=== PATIENT | male | born 1995 | race Caucasian/White ===

== ENCOUNTER 2018-02-01 11:23 | Emergency (ER) | payer OTHER ==
[2018-02-01 11:39] VITALS: BP 173/102; PULSE 89; RESP 18; TEMP 98.3
--- NOTE | 2018-02-01 11:54 | ED ---
Lower Extremity Injury HPI - General Chief Complaint: Extremity Injury, Lower Stated Complaint: Knee Injury Time Seen by Provider: 02/01/18 11:43 Source: patient, RN notes reviewed Mode of arrival: ambulatory Limitations: no limitations - History of Present Illness Initial Comments: This is a pleasant 22-year-old male who presents emergency department complaining of left knee pain. Patient states he was cutting wood yesterday when he twisted his left knee. Patient is complaining of pain to the anterior aspect of the knee. Patient did go to work but was unable to tolerate the knee pain while standing. Patient was sent to the ER for evaluation by his employer. This is a [id number] injury. Patient denies any ankle or hip pain. No other injuries. Pain is exacerbated by movement. Pain is sharp in nature. Patient has no preceding knee problems. MD Complaint: knee injury Onset/Timin -: days(s) Injury: Knee: Left Type of Injury: unknown Place: street/outdoors Severity: moderate Improves With: rest Worsens With: weight bearing, movement Treatments Prior to Arrival: cold therapy - Related Data Previous Rx's Medication Instructions Recorded Naproxen [Naprosyn] 500 mg PO Q12HR PRN #24 tab 02/01/18 Allergies Allergy/AdvReac Type Severity Reaction Status Date / Time No Known Allergies Allergy Verified 02/01/18 11:39 Review of Systems ROS Statement: Those systems with pertinent positive or pertinent negative responses have been documented in the HPI. ROS Other: All systems not noted in ROS Statement are negative. Past Medical History Past Medical History: No Reported History History of Any Multi-Drug Resistant Organisms: None Reported Past Surgical History: No Surgical Hx Reported Past Anesthesia/Blood Transfusion Reactions: No Reported Reaction Past Psychological History: ADD/ADHD Smoking Status: Current every day smoker Past Alcohol Use History: Rare Past Drug Use History: None Reported General Exam - General Exam Comments Initial Comments: Well-developed, well-nourished 22-year-old male in no distress Limitations: no limitations General appearance: alert, in no apparent distress Head exam: Present: atraumatic, normocephalic, normal inspection Eye exam: Present: normal appearance, EOMI ENT exam: Present: normal exam Neck exam: Present: normal inspection, full ROM Respiratory exam: Present: normal lung sounds bilaterally. Absent: respiratory distress, wheezes, rales, rhonchi, stridor Cardiovascular Exam: Present: regular rate, normal rhythm, normal heart sounds. Absent: systolic murmur, diastolic murmur, rubs, gallop, clicks Left Hip exam: Present: normal inspection, full ROM. Absent: tenderness, swelling, abrasion, laceration, ecchymosis, deformity, crepitus, dislocation, erythema, external rotation, internal rotation, shortening Upper Leg exam: Present: normal inspection. Absent: tenderness Knee exam: Present: tenderness, swelling, full knee extension. Absent: normal inspection, full ROM, abrasion, laceration, ecchymosis, deformity, crepitus, dislocation, erythema, effusion, pain w/ pronation/supination, posterior draw sign, pain/laxity with valgus, pain/laxity with varus Lower Leg exam: Present: normal inspection. Absent: tenderness Ankle exam: Present: normal inspection, full ROM. Absent: tenderness, swelling Neurovascular tendon exam: Present: no vascular compromise. Absent: pulse deficit, abnormal cap refill, sensory deficit, pallor Gait: antalgic Back exam: Present: normal inspection Neurological exam: Present: alert, oriented X3, CN II-XII intact Psychiatric exam: Present: normal affect, normal mood Skin exam: Present: warm, dry, intact, normal color. Absent: rash Course Vital Signs 02/01/18 11:36 Temperature 98.3 F Pulse Rate 89 Respiratory 18 Rate Blood Pressure 173/102 O2 Sat by Pulse 99 Oximetry Medical Decision Making - Medical Decision Making Patient has isolated orthopedic injury involving the left knee. Patient has no other injuries. Patient will be given work restrictions and be followed up with orthopedics. Return and follow-up parameters discussed. There is evidence of minimal joint effusion on x-ray as read by radiology. No acute fracture. Minimal patellar tracking instability via radiology. No other acute findings. Patient be placed in a knee immobilizer and told to follow-up with orthopedics. Work restrictions will be given. - Differential Diagnosis Knee effusion versus internal knee derangement versus sprain Disposition Clinical Impression: Internal derangement of left knee Disposition: HOME SELF-CARE Condition: Good Instructions: Knee Sprain (ED) Additional Instructions: Neurologic, Naprosyn as directed with food. Ice 20 minutes on and off for 4 days. Follow-up with orthopedics. Prescriptions: Naproxen [Naprosyn] 500 mg PO Q12HR PRN #24 tab PRN Reason: Pain Referrals: Epifanio Burnham DO [Doctor of Osteopathic Medicine] - 02/04/18 Time of Disposition: 12:28
--- NOTE | 2018-02-01 12:18 | XR ---
EXAMINATION TYPE: XR knee complete LT DATE OF EXAM: 02/01/2018 COMPARISON: NONE HISTORY: None TECHNIQUE: 22-year-old male with left knee pain for one day FINDINGS: There is a small knee joint effusion. No acute fracture, subluxation, or dislocation seen. There is m ild patella kristyn with patellar height ratio of 1.32. No acute fracture, subluxation, or dislocation s een. IMPRESSION: 1. No acute osseous abnormality seen. 2. Small knee joint effusion. If concern for internal derangement, MRI can be performed. 3. Mild patella kristyn. This can be seen in the setting of patellar tracking disorder and patellar inst ability. Clinically correlate.
== END 2018-02-01 13:03 | disposition home or self-care (01) ==
LOC: EC 11:23
DX: M23.92 Unspecified internal derangement of left knee (principal); F17.200 Nicotine dependence, unspecified, uncomplicated; X50.1XXA Overexertion from prolonged static or awkward postures, initial encounter; Y93.89 Activity, other specified; Y92.410 Unspecified street and highway as the place of occurrence of the external cause
CPT/HCPCS: 99283

== ENCOUNTER 2018-09-26 07:14 | Emergency (ER) | payer OTHER ==
[2018-09-26 07:24] VITALS: BP 122/84; PULSE 80; RESP 16; TEMP 97.2
[2018-09-26] MEDS ORDERED: ORPHENADRINE 30 MG/ML 2 ML VIAL IM STA (07:34)
[2018-09-26] MEDS ORDERED: KETOROLAC 60 MG/2 ML VIAL IM STA (07:34)
--- NOTE | 2018-09-26 07:52 | ED ---
Back Pain HPI - General Chief Complaint: Back Pain/Injury Stated Complaint: back pain Time Seen by Provider: 09/26/18 07:26 Source: patient, RN notes reviewed Mode of arrival: ambulatory Limitations: no limitations - History of Present Illness Initial Comments: 23-year-old male presents emergency Department chief complaint of low back pain. Patient states she does have some discomfort and states that he was working on his truck underneath it states that he was point down and felt something shift and his lower lumbar spine. Patient states that he's had severe pain though he has not taken anything for symptoms. Patient states that it was worse today when he got up out of bed. Patient denies any bowel, bladder incontinence or retention. Denies any abdominal pain, saddle anesthesia , lower extremity paresthesia. Patient states she did try nausea with minimal relief. Patient states she does get relief when he lays flat and when he bends his legs up. Patient denies any other complaints. - Related Data Previous Rx's Medication Instructions Recorded Cyclobenzaprine [Flexeril] 10 mg PO TID PRN #15 tab 09/26/18 Ibuprofen [Motrin] 600 mg PO Q8HR PRN #30 tab 09/26/18 Allergies Allergy/AdvReac Type Severity Reaction Status Date / Time No Known Allergies Allergy Verified 09/26/18 07:23 Review of Systems ROS Statement: Those systems with pertinent positive or pertinent negative responses have been documented in the HPI. ROS Other: All systems not noted in ROS Statement are negative. Past Medical History Past Medical History: No Reported History History of Any Multi-Drug Resistant Organisms: None Reported Past Surgical History: No Surgical Hx Reported Past Anesthesia/Blood Transfusion Reactions: No Reported Reaction Past Psychological History: ADD/ADHD Smoking Status: Current every day smoker Past Alcohol Use History: Rare Past Drug Use History: None Reported General Exam Limitations: no limitations General appearance: alert, in no apparent distress Head exam: Present: atraumatic, normocephalic, normal inspection Respiratory exam: Present: normal lung sounds bilaterally. Absent: respiratory distress, wheezes, rales, rhonchi, stridor Cardiovascular Exam: Present: regular rate, normal rhythm, normal heart sounds. Absent: systolic murmur, diastolic murmur, rubs, gallop, clicks GI/Abdominal exam: Present: soft, normal bowel sounds. Absent: distended, tenderness, guarding, rebound, rigid Extremities exam: Present: other (Lower extremity strength equal bilaterally, neurovascular intact equal color equal warmth mild discomfort with left straight leg raise) Back exam: Present: normal inspection, full ROM (Minimal discomfort), tenderness (Lumbar spine), paraspinal tenderness, vertebral tenderness Neurological exam: Present: alert, oriented X3, CN II-XII intact, reflexes normal. Absent: motor sensory deficit Skin exam: Present: warm, dry, intact, normal color. Absent: rash Course Vital Signs 09/26/18 07:20 Temperature 97.2 F L Pulse Rate 80 Respiratory 16 Rate Blood Pressure 122/84 O2 Sat by Pulse 99 Oximetry Medical Decision Making - Medical Decision Making 23-year-old male presents emergency department for low back pain. Patient has clinical lumbar strain with no red flag symptoms. X-rays were obtained which shows degenerative changes otherwise unremarkable. Patient we discharged with pain medication, anti-inflammatories and muscle relaxers. Patient will follow- up PCP and return for any worsening symptoms. Disposition Clinical Impression: Strain of lumbar region Disposition: HOME SELF-CARE Condition: Stable Instructions: Acute Low Back Pain (ED) Additional Instructions: Please return to the Emergency Department if symptoms worsen or any other concerns. Prescriptions: Cyclobenzaprine [Flexeril] 10 mg PO TID PRN #15 tab PRN Reason: Muscle Spasm Ibuprofen [Motrin] 600 mg PO Q8HR PRN #30 tab PRN Reason: Pain Is patient prescribed a controlled substance at d/c from ED?: No Referrals: None,Stated [Primary Care Provider] - 1-2 days Time of Disposition: 08:16
--- NOTE | 2018-09-26 08:10 | XR ---
EXAM TYPE: LUMBAR SPINE X RAY SERIES COMPARISON: NONE HISTORY: Pain TECHNIQUE: 4 views are submitted. FINDINGS: Alignment is anatomic. The pedicles are intact. The transverse processes are intact. There is no s pondylolysis or spondylolisthesis. There is a 5 mm calcification overlying the right upper quadrant. Mild disc space narrowing L4-5. IMPRESSION: 1. Mild degenerative disc disease L4-5. If symptoms persist consider MRI. 2. Right upper quadrant calcification could represent a small gallstone or renal stone correlate clin ically
[2018-09-26] MEDS ORDERED: ACET/COD 300 MG/30 MG STARTER PACK 6 TAB BTL PO STA (08:15)
== END 2018-09-26 08:29 | disposition home or self-care (01) ==
LOC: EC 07:14
DX: S39.012A Strain of muscle, fascia and tendon of lower back, initial encounter (principal); M47.896 Other spondylosis, lumbar region; F17.200 Nicotine dependence, unspecified, uncomplicated; X58.XXXA Exposure to other specified factors, initial encounter; Y93.89 Activity, other specified
CPT/HCPCS: 72110; 99283; 96372 ×2; J2360; J1885

== ENCOUNTER 2021-07-31 10:01 | Emergency (ER) | payer OTHER ==
[2021-07-31] MEDS ORDERED: predniSONE 50 MG TAB PO STA (10:25)
[2021-07-31] MEDS ORDERED: ACETAMINOPHEN TAB 500 MG TAB PO STA (10:25)
--- NOTE | 2021-07-31 10:36 | ED ---
Back Pain HPI - General Chief Complaint: Back Pain/Injury Stated Complaint: back pain Time Seen by Provider: 07/31/21 10:08 Source: patient, RN notes reviewed, old records reviewed Limitations: no limitations - History of Present Illness Initial Comments: 26-year-old male with a prior history of back issues who presents with complaints of 2 days of low back pain sharp that radiates at times to his left buttock area and also down to the right side no trouble bowel movements are urinary issues. Patient thinks he may over done it. He's had similar issues in the past. No definitive however at this time. No fevers chills nausea vomiting sweats or other symptoms MD Complaint: back pain Similar Symptoms Previously: Yes - Related Data Previous Rx's Medication Instructions Recorded Cyclobenzaprine [Flexeril] 10 mg PO TID #14 tab 07/31/21 Ibuprofen 800 mg PO Q6HR PRN #20 tablet 07/31/21 predniSONE [Deltasone] 20 mg PO BID #10 tab 07/31/21 Allergies Allergy/AdvReac Type Severity Reaction Status Date / Time No Known Allergies Allergy Verified 07/31/21 11:09 Review of Systems ROS Statement: Those systems with pertinent positive or pertinent negative responses have been documented in the HPI. ROS Other: All systems not noted in ROS Statement are negative. Past Medical History Past Medical History: No Reported History History of Any Multi-Drug Resistant Organisms: None Reported Past Surgical History: No Surgical Hx Reported Past Anesthesia/Blood Transfusion Reactions: No Reported Reaction Past Psychological History: ADD/ADHD Smoking Status: Current every day smoker Past Alcohol Use History: Rare Past Drug Use History: Marijuana General Exam - General Exam Comments Initial Comments: This is a well-developed well-nourished awake alert oriented 3 male Limitations: no limitations General appearance: alert, in no apparent distress Head exam: Present: atraumatic, normocephalic, normal inspection Eye exam: Present: normal appearance, PERRL, EOMI. Absent: scleral icterus, conjunctival injection, periorbital swelling ENT exam: Present: normal exam, mucous membranes moist Neck exam: Present: normal inspection, full ROM. Absent: tenderness, meningismus, lymphadenopathy Respiratory exam: Absent: respiratory distress, wheezes, rales, rhonchi, stridor Cardiovascular Exam: Present: regular rate, normal rhythm. Absent: systolic murmur, diastolic murmur, rubs, gallop, clicks GI/Abdominal exam: Present: soft, normal bowel sounds. Absent: distended, tenderness, guarding, rebound, rigid Rectal exam: Present: deferred Extremities exam: Present: normal inspection, full ROM, normal capillary refill. Absent: tenderness, pedal edema, joint swelling, calf tenderness Back exam: Present: normal inspection, tenderness, other (Tennis palpation of the lower lumbar L4 5 S1 region tenderness to palpation over the SI joints no gluteal tenderness palpation.) Neurological exam: Present: alert, oriented X3, CN II-XII intact Psychiatric exam: Present: normal affect, normal mood Skin exam: Present: warm, dry, intact, normal color. Absent: rash Course Vital Signs 07/31/21 10:03 Temperature 97.9 F Pulse Rate 74 Respiratory 16 Rate Blood Pressure 151/85 Medical Decision Making - Medical Decision Making The patient will be discharged I did discuss the findings with him. He'll be placed on a course of steroids. - Lab Data Result diagrams: 07/31/21 10:35 Lab Results 07/31/21 Range/Units 10:35 Sodium 140 (137-145) mmol/L Potassium 4.4 (3.5-5.1) mmol/L Chloride 105 (98-107) mmol/L Carbon Dioxide 26 (22-30) mmol/L Anion Gap 9 mmol/L BUN 22 H (9-20) mg/dL Creatinine 0.98 (0.66-1.25) mg/dL Est GFR (CKD-EPI)AfAm >90 (>60 ml/min/1.73 sqM) Est GFR (CKD-EPI)NonAf >90 (>60 ml/min/1.73 sqM) Glucose 114 H (74-99) mg/dL Calcium 10.3 H (8.4-10.2) mg/dL Total Bilirubin 0.6 (0.2-1.3) mg/dL AST 32 (17-59) U/L ALT 33 (4-49) U/L Alkaline Phosphatase 51 (38-126) U/L Total Protein 7.7 (6.3-8.2) g/dL Albumin 4.6 (3.5-5.0) g/dL - Radiology Data Radiology results: report reviewed (Imaging reviewed no evidence of acute findings..), image reviewed Disposition Clinical Impression: Mechanical back pain, Sciatica Disposition: HOME SELF-CARE Condition: Good Instructions (If sedation given, give patient instructions): Acute Low Back Pain (ED), Lower Back Exercises (ED), Sciatica (ED) Prescriptions: predniSONE [Deltasone] 20 mg PO BID #10 tab Cyclobenzaprine [Flexeril] 10 mg PO TID #14 tab Ibuprofen 800 mg PO Q6HR PRN #20 tablet PRN Reason: Pain Is patient prescribed a controlled substance at d/c from ED?: No Referrals: None,Stated [Primary Care Provider] - 1-2 days
--- NOTE | 2021-07-31 11:05 | XR ---
EXAMINATION TYPE: XR lumbosacral spine min 4V DATE OF EXAM: 07/31/2021 CLINICAL HISTORY: Low back pain TECHNIQUE: Frontal, lateral, and oblique images of the lumbar spine are obtained. COMPARISON: Lumbar spine x-ray September 26, 2018 FINDINGS: There are 5 lumbar type vertebral bodies redemonstrated. The lumbar spine shows satisfact ory alignment without evidence of acute fracture or dislocation. Vertebral body heights and disk spac e heights remain within normal limits. Mild anterior spurring L5-S1 level redemonstrated. The obliq ue images remain within normal limits. The overlying soft tissue appears unremarkable. There is 4 mm nonobstructing right renal calculus felt redemonstrated and stable near the right 12th rib. IMPRESSION: As above.
[2021-07-31 11:28] LABS: ALT 33 U/L (4-49); AST 32 U/L (17-59); African American GFR (CKD) >90 (>60 ml/min/1.73 sqM); Albumin 4.6 g/dL (3.5-5.0); Alkaline Phosphatase 51 U/L (38-126); Anion Gap 9 mmol/L; Blood Urea Nitrogen 22 mg/dL (9-20); Calcium 10.3 mg/dL (8.4-10.2); Carbon Dioxide 26 mmol/L (22-30); Chloride 105 mmol/L (98-107); Glucose 114 mg/dL (74-99); Non-African American GFR(CKD) >90 (>60 ml/min/1.73 sqM); Potassium 4.4 mmol/L (3.5-5.1); Sodium 140 mmol/L (137-145); Total Bilirubin 0.6 mg/dL (0.2-1.3); Total Protein 7.7 g/dL (6.3-8.2)
[2021-07-31 12:11] VITALS: BP 143/93; PULSE 73; RESP 18; TEMP 97.8
[2021-07-31 12:21] LABS: Appearance,Urine Clear (Clear); Bilirubin,Urine Negative (Negative); Blood,Urine Negative (Negative); Color,Urine Light Yellow; Glucose,Urine (UA) Negative (Negative); Ketones,Urine Negative (Negative); Leukocyte Esterase,Urine Trace (Negative); Mucus,Urine Rare /hpf; Nitrite,Urine Negative (Negative); Protein,Urine Negative (Negative); RBC,Urine 1 /hpf (0-5); Specific Gravity,Urine 1.015 (1.001-1.035); Squamous Epithelial Cell,Urine <1 /hpf (0-4); Urobilinogen,Urine <2.0 mg/dL (<2.0); WBC,Urine 5 /hpf (0-5)
== END 2021-07-31 12:06 | disposition home or self-care (01) ==
LOC: EC 10:01
DX: M54.42 Lumbago with sciatica, left side (principal); F17.200 Nicotine dependence, unspecified, uncomplicated
CPT/HCPCS: 36415; 80053; 81001; 72110; 99284; J7512

== ENCOUNTER 2022-05-10 10:43 | Emergency (ER) | payer OTHER ==
[2022-05-10 11:04] VITALS: RESP 18
[2022-05-10 11:28] VITALS: TEMP 97.9
--- NOTE | 2022-05-10 12:09 | XR ---
EXAMINATION TYPE: XR lumbar spine 2 or 3V DATE OF EXAM: 05/10/2022 CLINICAL HISTORY: pain TECHNIQUE: Three views of the lumbar spine are submitted. COMPARISON: None. FINDINGS: There is mild curvature convex to the left. There are 5 lumbar type vertebral bodies identified. The lumbar spine shows satisfactory alignment without evidence of acute fracture or dislocation. Vertebr al body heights are within normal limits. Mild degenerative narrowing L5-S1 with minimal ventral spon dylosis. Stable 4 mm calculus overlies the right kidney. IMPRESSION: No acute fracture or dislocation is seen in the lumbar spine. ICD 10 NO FRACTURE, INITIAL EVALUATION
--- NOTE | 2022-05-10 12:47 | ED ---
General Adult HPI - General Chief complaint: Back Pain/Injury Stated complaint: Back Pain Time Seen by Provider: 05/10/22 12:27 Source: patient Mode of arrival: ambulatory Limitations: no limitations - History of Present Illness Initial comments: Dictation was produced using [employer] dictation software. please excuse any grammatical, word or spelling errors. Chief Complaint: 27-year-old male presents to the emergency department for ep isodic right-sided flank pain History of Present Illness: Patient is 27-year-old male who presents to the emergency department for sciatic right-sided flank pain. Patient states that he has been having these bouts of severe right-sided flank pain that rates down to his groin. He states his episodes are intermittent. States that his mother was diagnosed with polycystic kidney disease recently. Patient states that his symptoms are manageable at this time. Denies any severe symptoms currently at the bedside. Patient states that over the last couple days it's been more severe. Over the last several weeks his symptoms have been getting worse. Denies any constitutional symptoms. Denies any pain to his general area. When he does get these bouts it radiates to his right groin. Denies any changes in the characteristics of his urine. The ROS documented in this emergency department record has been reviewed and confirmed by me. Those systems with pertinent positive or negative responses have been documented in the HPI. All other systems are other negative and/or noncontributory. PHYSICAL EXAM: General Impression: Alert and oriented x3, not in acute distress HEENT: Normocephalic atraumatic, extra-ocular movements intact, pupils equal and reactive to light bilaterally, mucous membranes moist. Cardiovascular: Heart regular rate and rhythm Chest: Able to complete full sentences, no retractions, no tachypnea Abdomen: abdomen soft, non-tender, non-distended, no organomegaly Musculoskeletal: Pulses present and equal in all extremities, no peripheral edema Motor: no focal deficits noted Neurological: CN II-XII grossly intact, no focal motor or sensory deficits noted Skin: Intact with no visualized rashes Psych: Normal affect and mood ED course: 27-year-old well-appearing male with familial history of polycystic kidney disease presents to the emergency department for episodes of right-sided flank pain that radiates to the groin. he denies any history of kidney stones. Laboratory evaluation obtained. CBC unremarkable. Metabolic panel is negative. Urinalysis shows [address] of the abdomen and pelvis without contrast was ordered showing polycystic kidney disease with a couple of hemorrhagic or proteinaceous cyst bilaterally. No obstructing nephrolithiasis however there is calculi within the bladder which reflect recently passed calculi. Patient to the emergency department for 4 hours. Reevaluate at bedside at 2:55 PM found to be in stable medical condition. Patient was notified of his results. Patient is advised to follow up with primary care doctor is given referral to [facility]. - Related Data Previous Rx's Medication Instructions Recorded Cyclobenzaprine [Flexeril] 10 mg PO TID #14 tab 07/31/21 Ibuprofen 800 mg PO Q6HR PRN #20 tablet 07/31/21 predniSONE [Deltasone] 20 mg PO BID #10 tab 07/31/21 Allergies Allergy/AdvReac Type Severity Reaction Status Date / Time No Known Allergies Allergy Verified 07/31/21 11:09 Review of Systems ROS Statement: Those systems with pertinent positive or pertinent negative responses have been documented in the HPI. ROS Other: All systems not noted in ROS Statement are negative. Past Medical History Past Medical History: No Reported History History of Any Multi-Drug Resistant Organisms: None Reported Past Surgical History: No Surgical Hx Reported Past Anesthesia/Blood Transfusion Reactions: No Reported Reaction Past Psychological History: ADD/ADHD Smoking Status: Current every day smoker Past Alcohol Use History: Rare Past Drug Use History: Marijuana General Exam Limitations: no limitations Course Vital Signs 05/10/22 11:01 Temperature 97.9 F Pulse Rate 65 Respiratory 18 Rate Blood Pressure 149/99 O2 Sat by Pulse 100 Oximetry Medical Decision Making - Lab Data Result diagrams: 05/10/22 13:30 05/10/22 13:30 Lab Results 05/10/22 05/10/22 05/10/22 Range/Units 13:30 13:30 13:30 WBC 5.9 (3.8-10.6) k/uL RBC 5.21 (4.30-5.90) m/uL Hgb 15.5 (13.0-17.5) gm/dL Hct 46.8 (39.0-53.0) % MCV 90.0 (80.0-100.0) fL MCH 29.7 (25.0-35.0) pg MCHC 33.0 (31.0-37.0) g/dL RDW 12.6 (11.5-15.5) % Plt Count 196 (150-450) k/uL MPV 8.3 Neutrophils % 74 % Lymphocytes % 17 % Monocytes % 5 % Eosinophils % 2 % Basophils % 1 % Neutrophils # 4.4 (1.3-7.7) k/uL Lymphocytes # 1.0 (1.0-4.8) k/uL Monocytes # 0.3 (0-1.0) k/uL Eosinophils # 0.1 (0-0.7) k/uL Basophils # 0.0 (0-0.2) k/uL Sodium 140 (137-145) mmol/L Potassium 4.7 (3.5-5.1) mmol/L Chloride 106 (98-107) mmol/L Carbon Dioxide 27 (22-30) mmol/L Anion Gap 7 mmol/L BUN 18 (9-20) mg/dL Creatinine 0.89 (0.66-1.25) mg/dL Est GFR (CKD-EPI)AfAm >90 (>60 ml/min/1.73 sqM) Est GFR (CKD-EPI)NonAf >90 (>60 ml/min/1.73 sqM) Glucose 97 (74-99) mg/dL Calcium 9.5 (8.4-10.2) mg/dL Urine Color Light Yellow Urine Appearance Clear (Clear) Urine pH 7.0 (5.0-8.0) Ur Specific [place] 1.011 (1.001-1.035) Urine Protein Negative (Negative) Urine Glucose (UA) Negative (Negative) Urine Ketones Negative (Negative) Urine Blood Negative (Negative) Urine Nitrite Negative (Negative) Urine Bilirubin Negative (Negative) Urine Urobilinogen <2.0 (<2.0) mg/dL Ur Leukocyte Esterase Small H (Negative) Urine RBC 1 (0-5) /hpf Urine WBC 6 H (0-5) /hpf Ur Squamous Epith Cells <1 (0-4) /hpf Urine Mucus Rare H (None) /hpf Disposition Clinical Impression: Kidney stone Disposition: HOME SELF-CARE Condition: Good Instructions (If sedation given, give patient instructions): Kidney Stones (ED), Autosomal Dominant Polycystic Kidney Disease (ED) Is patient prescribed a controlled substance at d/c from ED?: No Referrals: Nicky Crews MD [REFERRING] - 1-2 days Carolynn Slade MD [STAFF PHYSICIAN] - 1-2 days Time of Disposition: 14:54
--- NOTE | 2022-05-10 13:09 | CT ---
EXAMINATION TYPE: CT abdomen pelvis wo con DATE OF EXAM: 05/10/2022 COMPARISON: None HISTORY: Abdominal pain CT DLP: 869.8 mGycm Examination of the solid and hollow viscera is limited given the lack of contrast. FINDINGS: LUNG BASES: No evidence for nodule. No evidence for infiltrate. LIVER/GB: The gallbladder is unremarkable. No space-occupying hepatic lesion. PANCREAS: No pancreatic mass identified. No inflammatory process seen. SPLEEN: No evidence for splenomegaly. No intrasplenic lesions seen. ADRENALS: No adrenal nodules identified. No evidence for thickening. KIDNEYS: The kidneys are enlarged bilaterally with innumerable renal cysts compatible with polycystic kidney disease. There are also bilateral nonobstructing calculi identified within both kidneys. Some of these cystic lesions are hyperdense which may reflect hemorrhagic or proteinaceous component. Lay ering small stones are seen within the dependent portion of the urinary bladder could reflect recentl y passed calculus. There is no significant hydronephrosis appreciated. BOWEL: Appendix has a normal appearance. No evidence of bowel obstruction. No inflammatory process. Lymph nodes: No evidence for adenopathy greater than 1 cm. Abdominal aorta: Atheromatous changes seen. No evidence for aneurysm. Genital organs: No significant abnormality. Other: Fat-containing left inguinal hernia and a smaller right-sided fat-containing inguinal hernia. IMPRESSION: 1. Polycystic kidney disease. There appear to be a couple of hemorrhagic or proteinaceous cysts bilat erally. 2. Nonobstructing nephrolithiasis. 3. Layering calculi within the dependent portion of the urinary bladder could reflect recently passed calculi.
[2022-05-10 13:52] LABS: Basophils % (A) 1 %; Eosinophils # (A) 0.1 k/uL (0-0.7); Eosinophils % (A) 2 %; HCT 46.8 % (39.0-53.0); HGB 15.5 gm/dL (13.0-17.5); Lymphocytes % (A) 17 %; MCH 29.7 pg (25.0-35.0); Mean Platelet Volume 8.3; Monocytes # (A) 0.3 k/uL (0-1.0); Monocytes % (A) 5 %; Neutrophils # (A) 4.4 k/uL (1.3-7.7); Neutrophils % (A) 74 %; Platelet Count 196 k/uL (150-450); RBC 5.21 m/uL (4.30-5.90); RDW 12.6 % (11.5-15.5); WBC 5.9 k/uL (3.8-10.6)
[2022-05-10 13:55] LABS: Appearance,Urine Clear (Clear); Bilirubin,Urine Negative (Negative); Blood,Urine Negative (Negative); Color,Urine Light Yellow; Glucose,Urine (UA) Negative (Negative); Ketones,Urine Negative (Negative); Leukocyte Esterase,Urine Small (Negative); Mucus,Urine Rare /hpf; Nitrite,Urine Negative (Negative); Protein,Urine Negative (Negative); RBC,Urine 1 /hpf (0-5); Specific Gravity,Urine 1.011 (1.001-1.035); Squamous Epithelial Cell,Urine <1 /hpf (0-4); Urobilinogen,Urine <2.0 mg/dL (<2.0); WBC,Urine 6 /hpf (0-5)
[2022-05-10 13:59] LABS: African American GFR (CKD) >90 (>60 ml/min/1.73 sqM); Anion Gap 7 mmol/L; Blood Urea Nitrogen 18 mg/dL (9-20); Calcium 9.5 mg/dL (8.4-10.2); Carbon Dioxide 27 mmol/L (22-30); Chloride 106 mmol/L (98-107); Glucose 97 mg/dL (74-99); Non-African American GFR(CKD) >90 (>60 ml/min/1.73 sqM); Potassium 4.7 mmol/L (3.5-5.1); Sodium 140 mmol/L (137-145)
[2022-05-10 15:15] VITALS: BP 146/94; PULSE 68
== END 2022-05-10 15:13 | disposition home or self-care (01) ==
LOC: EC 10:43
DX: N20.0 Calculus of kidney (principal); F17.200 Nicotine dependence, unspecified, uncomplicated
CPT/HCPCS: 36415; 72100; 74176; 80048; 81001; 85025; 99284

== ENCOUNTER 2024-10-21 17:26 | Emergency (ER) | payer OTHER ==
--- NOTE | 2024-10-21 17:59 | ED ---
Male Urogenital HPI - General Source: patient, RN notes reviewed Mode of arrival: ambulatory Limitations: no limitations - History of Present Illness Onset/Timin -: year(s) <Mason Puga - Last Filed: 10/21/24 17:55> <Dwight Watson - Last Filed: 10/21/24 21:25> - General Stated complaint: Abd pain,Urogenital Time Seen by Provider: 10/21/24 17:41 - History of Present Illness Initial comments: Quick note: This is a 29-year-old male recurrent large left testy and lower abdominal pain x 1 year. Patient states that she is currently in normal size but upon waking in the morning the "table flips" causing enlargement of his testy with subsequent resolution of lower abdominal pain. States pain resolves when testes enlarged and returns once chest CT because normal size. 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 Endorses history of hernia about 1 year ago. Denies fever, chills, N/V/D, urinary symptoms, urethral discharge. (Mason Puga) Dictation was produced using [employer] dictation software. please excuse any gr ammatical, word or spelling errors. Chief Complaint: 29-year-old male with saccular enlargement to the left groin History of Present Illness: Patient 29-year-old male for the last year he has had bulging sensation of his lower abdomen and left testicle. Patient states he has not sought internist medical doctor md for his symptoms yet. Denies any nausea vomiting denies any abdominal pain. States that he wakes up in the morning feels like there is a flipping sensation in his lower abdomen. The ROS documented in this emergency department record has been reviewed and confirmed by me. Those systems with pertinent positive or negative responses have been documented in the HPI. All other systems are other negative and/or noncontributory. (Dwight Watson) - Related Data Previous Rx's Medication Instructions Recorded Cyclobenzaprine [Flexeril] 10 mg PO TID #14 tab 07/31/21 Ibuprofen 800 mg PO Q6HR PRN #20 tablet 07/31/21 predniSONE [Deltasone] 20 mg PO BID #10 tab 07/31/21 Allergies Allergy/AdvReac Type Severity Reaction Status Date / Time No Known Allergies Allergy Verified 10/21/24 17:54 Review of Systems ROS Other: All systems not noted in ROS Statement are negative. <Mason Puga - Last Filed: 10/21/24 17:55> ROS Other: All systems not noted in ROS Statement are negative. <Dwight Watson - Last Filed: 10/21/24 21:25> ROS Statement: Those systems with pertinent positive or pertinent negative responses have been documented in the HPI. Past Medical History Past Medical History: No Reported History Additional Past Medical History / Comment(s): Kidney disease History of Any Multi-Drug Resistant Organisms: None Reported Past Surgical History: No Surgical Hx Reported Past Anesthesia/Blood Transfusion Reactions: No Reported Reaction Past Psychological History: ADD/ADHD Smoking Status: Vaper Past Alcohol Use History: Rare Past Drug Use History: Marijuana <Mason Puga - Last Filed: 10/21/24 17:55> General Exam Limitations: no limitations <Mason Puga - Last Filed: 10/21/24 17:55> <Dwight Watson - Last Filed: 10/21/24 21:25> - General Exam Comments Initial Comments: Visual Physical Exam Vital signs reviewed General: Well-appearing, nontoxic, no acute distress. Head: Normocephalic, atraumatic Eyes: PERRLA, EOMI ENT: Airway patent Chest: Nonlabored breathing Skin: No visual rash, normal skin tone Neuro: Alert and oriented 3 Musculoskeletal: No gross abnormalities (Mason Puga) PHYSICAL EXAM: General Impression: Alert and oriented x3, not in acute distress HEENT: Normocephalic atraumatic, extra-ocular movements intact, pupils equal and reactive to light bilaterally, mucous membranes moist. Cardiovascular: Heart regular rate and rhythm Chest: Able to complete full sentences, no retractions, no tachypnea Abdomen: abdomen soft, non-tender, non-distended, no organomegaly Musculoskeletal: Pulses present and equal in all extremities, no peripheral edema Motor: no focal deficits noted Neurological: CN II-XII grossly intact, no focal motor or sensory deficits noted Skin: Intact with no visualized rashes Psych: Normal affect and mood General Exam: Palpable mass in the left scrotum (Dwight Watson) Course Vital Signs 10/21/24 17:52 Temperature 98 F Pulse Rate 94 Respiratory 20 Rate Blood Pressure 167/84 O2 Sat by Pulse 99 Oximetry Medical Decision Making <Mason Puga - Last Filed: 10/21/24 17:55> - Lab Data Result diagrams: 10/21/24 18:55 10/21/24 18:55 <Dwight Watson - Last Filed: 10/21/24 21:25> - Medical Decision Making I completed the quick note portion of this chart signed ALEXEI Saldivar (Mason Puga) Was pt. sent in by a medical professional or institution (INDIA Kaur, SALES CLERK FOOD, urgent care, hospital, or senior care...) When possible be specific @ -No Did you speak to anyone other than the patient for history (EMS, parent, family, police, friend...)? What history was obtained from this source @ -No Did you review nursing and triage notes (agree or disagree)? Why? @ -I reviewed and agree with nursing and triage notes Were old charts reviewed (outside hosp., previous admission, EMS record, old EKG, old radiological studies, urgent care reports/EKG's, senior care records)? Report findings @ -No old charts were reviewed Differential Diagnosis (chest pain, altered mental status, abdominal pain women, abdominal pain men, vaginal bleeding, musculoskeletal, weakness, fever, dyspnea, syncope, headache, dizziness, GI bleed, back pain, seizure, CVA, palpatations, mental health)? @ -Differential Abdominal Pain Men: Appendicitis, cholecystitis, diverticulosis, ischemic bowel, pancreatitis, hepatitis, UTI, gastroenteritis, AAA, incarcerated hernia, bowel obstruction, constipation, inflammatory bowel, hepatitis, peptic ulcer disease, splenic infarction, perforated viscus, testicular torsion, this is not meant to be an all-inclusive list EKG interpreted by me (3pts min.). @ -None done X-rays interpreted by me (1pt min.). @ -None done CT interpreted by me (1pt min.). @ -CT shows fat-containing left scrotal hernia from inguinal defect U/S interpreted by me (1pt. min.). @ -None done What testing was considered but not performed or refused? (CT, X-rays, U/S, labs)? Why? @ -None What meds were considered but not given or refused? Why? @ -None Was smoking cessation discussed for >3mins.? @ -No Were there social determinants of health that impacted care today? How? (Homelessness, low income, unemployed, alcoholism, drug addiction, transportation, low edu. Level, literacy, decrease access to med. care, group home, rehab)? @ -No Was there de-escalation of care discussed even if they declined (Discuss DNR or withdrawal of care, Hospice)? DNR status @ -No What co-morbidities impacted this encounter? (DM, HTN, Smoking, COPD, CAD, Cancer, CVA, ARF, Chemo, Hep., AIDS, mental health diagnosis, sleep apnea, morbid obesity)? @ -None Was patient admitted / discharged? Hospital course, mention meds given and route, prescriptions, significant lab abnormalities, going to OR and other per tinent info. @ -29-year-old male presents to the emergency department with a inguinal hernia. Vital signs stable. CT shows fat-containing hernia. Radiology concern of some fat stranding concerning for some degree of strangulation. Patient otherwise well-appearing not showing any signs of abdominal obstruction. Laboratory evaluation is unremarkable. Patient discharged with referral to general surgery Did you discuss the management of the patient with other professionals (professionals i.e. , PA, SALES CLERK FOOD, lab, RT, psych nurse, social media intern, sheepskin pickler, teacher, ship officer, corrections caseworker)? Give summary @ -Discussed with general surgery, Dr. Albright states that patient is fine for discharge considering that it is only fat containing hernia and not bowel. Was critical care preformed (if so, how long)? @ -No Undiagnosed new problem with uncertain prognosis? @ -No Drug Therapy requiring intensive monitoring for toxicity (Heparin, Nitro, Insulin, Cardizem)? @ -No Were any procedures done? @ -No Diagnosis/symptom? Acute, or Chronic, or Acute on Chronic? Uncomplicated (without systemic symptoms) or Complicated (systemic symptoms)? @ -Inguinal hernia Side effects of treatment? @ -No Exacerbation, Progression, or Severe Exacerbation? @ -No Poses a threat to life or bodily function? How? (Chest pain, [place], [place], pneumonia, PE, COPD, DKA, ARF, appy, cholecystitis, CVA, Diverticulitis, Homicidal, Suicidal, threat to staff... and all critical care pts) @ -yes (Dwight Watson) - Lab Data Lab Results 10/21/24 10/21/24 10/21/24 Range/Units 18:55 18:55 18:55 WBC 8.6 (3.8-10.6) k/uL RBC 5.23 (4.30-5.90) m/uL Hgb 14.9 (13.0-17.5) gm/dL Hct 45.7 (39.0-53.0) % MCV 87.4 (80.0-100.0) fL MCH 28.5 (25.0-35.0) pg MCHC 32.7 (31.0-37.0) g/dL RDW 13.0 (11.5-15.5) % Plt Count 248 (150-450) k/uL MPV 8.5 Neutrophils % 76 % Lymphocytes % 16 % Monocytes % 5 % Eosinophils % 2 % Basophils % 1 % Neutrophils # 6.5 (1.3-7.7) k/uL Lymphocytes # 1.3 (1.0-4.8) k/uL Monocytes # 0.4 (0-1.0) k/uL Eosinophils # 0.2 (0-0.7) k/uL Basophils # 0.0 (0-0.2) k/uL Sodium 139 (137-145) mmol/L Potassium 4.3 (3.5-5.1) mmol/L Chloride 103 (98-107) mmol/L Carbon Dioxide 26 (22-30) mmol/L Anion Gap 10 mmol/L BUN 18 (9-20) mg/dL Creatinine 0.91 (0.66-1.25) mg/dL Est GFR (CKD-EPI)AfAm >90 (>60 ml/min/1.73 sqM) Est GFR (CKD-EPI)NonAf >90 (>60 ml/min/1.73 sqM) Glucose 91 (74-99) mg/dL Plasma Lactic Acid Jerry 1.5 (0.7-2.0) mmol/L Calcium 9.8 (8.4-10.2) mg/dL Total Bilirubin 0.4 (0.2-1.3) mg/dL AST 41 (17-59) U/L ALT 56 H (4-49) U/L Alkaline Phosphatase 49 (38-126) U/L Total Protein 7.6 (6.3-8.2) g/dL Albumin 4.8 (3.5-5.0) g/dL Disposition <Mason Puga - Last Filed: 10/21/24 17:55> Is patient prescribed a controlled substance at d/c from ED?: No Time of Disposition: 21:14 <Dwight Watson - Last Filed: 10/21/24 21:25> Clinical Impression: Inguinal hernia Disposition: HOME SELF-CARE Condition: Fair Instructions (If sedation given, give patient instructions): Inguinal Hernia (ED) Referrals: Fausto Albright DO [Medical Doctor] - 1-2 days
[2024-10-21 19:46] LABS: Basophils % (A) 1 %; Eosinophils # (A) 0.2 k/uL (0-0.7); Eosinophils % (A) 2 %; HCT 45.7 % (39.0-53.0); HGB 14.9 gm/dL (13.0-17.5); Lymphocytes # (A) 1.3 k/uL (1.0-4.8); Lymphocytes % (A) 16 %; MCH 28.5 pg (25.0-35.0); MCHC 32.7 g/dL (31.0-37.0); MCV 87.4 fL (80.0-100.0); Mean Platelet Volume 8.5; Monocytes # (A) 0.4 k/uL (0-1.0); Monocytes % (A) 5 %; Neutrophils # (A) 6.5 k/uL (1.3-7.7); Neutrophils % (A) 76 %; Platelet Count 248 k/uL (150-450); RBC 5.23 m/uL (4.30-5.90); WBC 8.6 k/uL (3.8-10.6)
[2024-10-21 19:52] LABS: ALT 56 U/L (4-49); AST 41 U/L (17-59); African American GFR (CKD) >90 (>60 ml/min/1.73 sqM); Albumin 4.8 g/dL (3.5-5.0); Alkaline Phosphatase 49 U/L (38-126); Anion Gap 10 mmol/L; Blood Urea Nitrogen 18 mg/dL (9-20); Calcium 9.8 mg/dL (8.4-10.2); Carbon Dioxide 26 mmol/L (22-30); Chloride 103 mmol/L (98-107); Glucose 91 mg/dL (74-99); Non-African American GFR(CKD) >90 (>60 ml/min/1.73 sqM); Potassium 4.3 mmol/L (3.5-5.1); Sodium 139 mmol/L (137-145); Total Bilirubin 0.4 mg/dL (0.2-1.3); Total Protein 7.6 g/dL (6.3-8.2)
--- NOTE | 2024-10-21 21:13 | CT ---
EXAMINATION TYPE: CT abdomen pelvis w con DATE OF EXAM: 10/21/2024 8:34 PM COMPARISON: 05/10/2022 CLINICAL INDICATION: Male, 29 years old with history of Bulging in scrotum and lower abdominal pain x 1 yr; Pt states lower abd pain and swollen testicle for over 1 year. TECHNIQUE: Axial CT abdomen pelvis w con;Sagittal and coronal reformats were created on a separate w orkstation. Contrast used:100cc mL of Isovue 300 with IV Contrast, (none if empty) Oral contrast used: without Oral Contrast (none if empty) CT DLP: 1884.8 mGycm, Automated exposure control for dose reduction was used. FINDINGS: LOWER CHEST: Unremarkable ABDOMEN LIVER: Unremarkable GALLBLADDER AND BILE DUCTS: Unremarkable. PANCREAS: Unremarkable. SPLEEN: Unremarkable. ADRENAL GLANDS: Unremarkable. KIDNEYS AND URETERS: Multiple bilateral renal cysts which are too numerous to count. Bilateral nonobs tructing renal calculi measuring up to 5 mm on the right andr 7 mm in the left. No evidence of hydron ephrosis. PELVIS BLADDER: No evidence for wall thickening or mass given limitations of exam. REPRODUCTIVE: Unremarkable. ABDOMEN & PELVIS STOMACH AND BOWEL: No evidence of bowel obstruction. The appendix is normal. Moderate amount stool is seen throughout the colon. PERITONEUM/RETROPERITONEUM: No evidence of pneumoperitoneum or free fluid. VASCULATURE: No evidence of aortic aneurysm. MUSCULOSKELETAL: No acute osseous abnormalities LYMPH NODES: No gross evidence for lymphadenopathy. SOFT TISSUE/ABDOMINAL WALL: Large left inguinal hernia with mesentery extending down into the scrotum . There is a rakel mesentery within this fat extending down to the scrotum. Fat-containing right ingu inal hernia. IMPRESSION: 1. No evidence for acute abdominal process. 2. Large left inguinal hernia with mesentery extending down into the scrotum. There is fat stranding suggesting some degree of strangulation of the mesentery. 3. Polycystic kidneys bilaterally with nonobstructing bilateral renal calculi. [facility], , 10/21/2024 9:10 PM
[2024-10-21 21:33] LABS: Appearance,Urine Clear (Clear); Bilirubin,Urine Negative (Negative); Blood,Urine Negative (Negative); Color,Urine Colorless; Glucose,Urine (UA) Negative (Negative); Ketones,Urine Negative (Negative); Leukocyte Esterase,Urine Negative (Negative); Nitrite,Urine Negative (Negative); PH, Urine 6.5 (5.0-8.0); Protein,Urine Negative (Negative); Specific Gravity,Urine 1.015 (1.001-1.035); Urobilinogen,Urine <2.0 mg/dL (<2.0)
[2024-10-21 21:46] VITALS: BP 160/74; PULSE 87; RESP 18; TEMP 97.9
[2024-10-23 11:25] LABS: C. trachomatis,PCR Negative (Negative)
[2024-10-23 11:35] LABS: N. gonorrhoeae,PCR Negative (Negative)
== END 2024-10-21 21:46 | disposition home or self-care (01) ==
LOC: EC 17:26
DX: K40.90 Unilateral inguinal hernia, without obstruction or gangrene, not specified as recurrent (principal); F17.290 Nicotine dependence, other tobacco product, uncomplicated
CPT/HCPCS: 36415; 80053; 83605; 85025; 81003; 87491; 87591; 74177; 99284; Q9967

== ENCOUNTER 2024-10-25 18:33 | Emergency (ER) | payer OTHER ==
--- NOTE | 2024-10-25 19:09 | ED ---
Abdominal Pain HPI - General Chief Complaint: Abdominal Pain Stated Complaint: Hernia Time Seen by Provider: 10/25/24 18:47 Source: patient, RN notes reviewed Mode of arrival: ambulatory Limitations: no limitations - History of Present Illness Initial Comments: This is a 29-year-old male presenting with left inguinal hernia (04/03). Patient was seen at this ER on 10/21/2024 when was discovered that he had a left middle hernia with some strangulation. Patient was advised to follow-up with outpatient surgery. Patient states pain and swelling are worsened today following repeated unintentional trauma to the area by dog and friend during [place]. Patient notes some difficulty with bowel movement as well. States swelling and pain are inconvenient but not debilitating at this time. 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 MD Complaint: abdominal pain Onset/Timin -: days(s) Location: LLQ Radiation: none Migration to: no migration Severity scale (1-10): 6 Worsens With: bowel movement, movement, other (Lifting) Associated Symptoms: denies other symptoms - Related Data Previous Rx's Medication Instructions Recorded Cyclobenzaprine [Flexeril] 10 mg PO TID #14 tab 07/31/21 Ibuprofen 800 mg PO Q6HR PRN #20 tablet 07/31/21 predniSONE [Deltasone] 20 mg PO BID #10 tab 07/31/21 Allergies Allergy/AdvReac Type Severity Reaction Status Date / Time No Known Allergies Allergy Verified 10/25/24 18:36 Review of Systems ROS Statement: Those systems with pertinent positive or pertinent negative responses have been documented in the HPI. ROS Other: All systems not noted in ROS Statement are negative. Past Medical History Past Medical History: No Reported History Additional Past Medical History / Comment(s): Kidney disease History of Any Multi-Drug Resistant Organisms: None Reported Past Surgical History: No Surgical Hx Reported Past Anesthesia/Blood Transfusion Reactions: No Reported Reaction Past Psychological History: ADD/ADHD Smoking Status: Vaper Past Alcohol Use History: Rare Past Drug Use History: Marijuana General Exam Limitations: no limitations General appearance: alert, in no apparent distress Head exam: Present: atraumatic, normocephalic, normal inspection Eye exam: Present: normal appearance, PERRL, EOMI. Absent: scleral icterus, conjunctival injection, periorbital swelling ENT exam: Present: normal exam, mucous membranes moist Neck exam: Present: normal inspection. Absent: tenderness, meningismus, lymphadenopathy Respiratory exam: Present: normal lung sounds bilaterally. Absent: respiratory distress, wheezes, rales, rhonchi, stridor Cardiovascular Exam: Present: regular rate, normal rhythm, normal heart sounds. Absent: systolic murmur, diastolic murmur, rubs, gallop, clicks GI/Abdominal exam: Present: soft, normal bowel sounds, hernia (Positive reducible left inguinal herniation without tenderness). Absent: distended, tenderness, guarding, rebound, rigid Extremities exam: Present: normal inspection, full ROM, normal capillary refill. Absent: tenderness, pedal edema, joint swelling, calf tenderness Back exam: Present: normal inspection Neurological exam: Present: alert, oriented X3, CN II-XII intact Psychiatric exam: Present: normal affect, normal mood Skin exam: Present: warm, dry, intact, normal color. Absent: rash Course Vital Signs 10/25/24 18:34 Temperature 97.4 F L Pulse Rate 82 Respiratory 20 Rate Blood Pressure 138/90 O2 Sat by Pulse 99 Oximetry Medical Decision Making - Medical Decision Making Was pt. sent in by a medical professional or institution (, PA, FILTER TANK TENDER HELPER HEAD, urgent care, hospital, or shelter...) When possible be specific @ -No Did you speak to anyone other than the patient for history (EMS, parent, family, police, friend...)? What history was obtained from this source @ -No Did you review nursing and triage notes (agree or disagree)? Why? @ -I reviewed and agree with nursing and triage notes Were old charts reviewed (outside hosp., previous admission, EMS record, old EKG, old radiological studies, urgent care reports/EKG's, shelter records)? Report findings @ -No old charts were reviewed Differential Diagnosis (chest pain, altered mental status, abdominal pain women, abdominal pain men, vaginal bleeding, weakness, fever, dyspnea, syncope, headache, dizziness, GI bleed, back pain, seizure, CVA, palpatations, mental health, musculoskeletal)? @ -Differential Abdominal Pain Men: Appendicitis, cholecystitis, diverticulosis, ischemic bowel, pancreatitis, hepatitis, UTI, gastroenteritis, AAA, incarcerated hernia, bowel obstruction, constipation, inflammatory bowel, hepatitis, peptic ulcer disease, splenic infarction, perforated viscus, testicular torsion, this is not meant to be an all-inclusive list EKG interpreted by me (3pts min.). @ -Not done X-rays interpreted by me (1pt min.). @ -None done CT interpreted by me (1pt min.). @ -None done U/S interpreted by me (1pt. min.). @ -None done What testing was considered but not performed or refused? (CT, X-rays, U/S, labs)? Why? @ -None What meds were considered but not given or refused? Why? @ -None Did you discuss the management of the patient with other professionals (professionals i.e. , PA, FILTER TANK TENDER HELPER HEAD, lab, RT, psych nurse, social media marketing manager, playground aide, teacher, army senior officer, continuous pillowcase cutter)? Give summary @ -No Was smoking cessation discussed for >3mins.? @ -No Was critical care preformed (if so, how long)? @ -No Were there social determinants of health that impacted care today? How? (Homelessness, low income, unemployed, alcoholism, drug addiction, transportation, low edu. Level, literacy, decrease access to med. care, halfway, rehab)? @ -No Was there de-escalation of care discussed even if they declined (Discuss DNR or withdrawal of care, Hospice)? DNR status @ -No What co-morbidities impacted this encounter? (DM, HTN, Smoking, COPD, CAD, Cancer, CVA, ARF, Chemo, Hep., AIDS, mental health diagnosis, sleep apnea, morbid obesity)? @ -None Was patient admitted / discharged? Hospital course, mention meds given and route, prescriptions, significant lab abnormalities, going to OR and other pertinent info. @ -Patient provided work note and reference to several other general surgeons in the [place] area to follow-up with. Advised return to ER if experiencing worsening abdominal pain, hematochezia, fever. Undiagnosed new problem with uncertain prognosis? @ -No Drug Therapy requiring intensive monitoring for toxicity (Heparin, Nitro, Insulin, Cardizem)? @ -No Were any procedures done? @ -No Diagnosis/symptom? @ -Inguinal hernia Acute, or Chronic, or Acute on Chronic? @ -Acute Uncomplicated (without systemic symptoms) or Complicated (systemic symptoms)? @ -Uncomplicated Side effects of treatment? @ -No Exacerbation, Progression, or Severe Exacerbation? @ -Exacerbation Poses a threat to life or bodily function? How? (Chest pain, [place], [place], pneumonia, PE, COPD, DKA, ARF, appy, cholecystitis, CVA, Diverticulitis, Homicidal, Suicidal, threat to staff... and all critical care pts) @ -No Disposition Clinical Impression: Inguinal hernia Disposition: HOME SELF-CARE Condition: Good Instructions (If sedation given, give patient instructions): Inguinal Hernia (ED) Is patient prescribed a controlled substance at d/c from ED?: No Referrals: None,Stated [Primary Care Provider] - 1-2 days Nicola Elizalde MD [STAFF PHYSICIAN] - 1-2 days Primitivo Coleman DO [REFERRING] - 1-2 days Ori Andrade MD [Medical Doctor] - 1-2 days Time of Disposition: 19:09
[2024-10-25 20:19] VITALS: BP 125/88; PULSE 80; RESP 19; TEMP 97.9
== END 2024-10-25 20:19 | disposition home or self-care (01) ==
LOC: EC 18:33
DX: K40.90 Unilateral inguinal hernia, without obstruction or gangrene, not specified as recurrent (principal); F17.290 Nicotine dependence, other tobacco product, uncomplicated
CPT/HCPCS: 99284

== ENCOUNTER → 2024-11-20 | Outpatient (CLI) | payer OTHER ==
[2024-11-20 19:18] LABS: Basophils # (A) 0.05 X 10*3/uL (0.00-0.10); Basophils % (A) 0.8 %; Eosinophils # (A) 0.25 X 10*3/uL (0.04-0.35); HCT 43.8 % (39.6-50.0); HGB 14.7 g/dL (13.0-17.0); Lymphocytes # (A) 1.48 X 10*3/uL (0.90-5.00); Lymphocytes % (A) 23.6 %; MCH 29.1 pg (27.0-32.0); MCHC 33.6 g/dL (32.0-37.0); MCV 86.7 FL (80.0-97.0); Mean Platelet Volume 11.1 FL (9.5-12.2); Monocytes # (A) 0.56 X 10*3/uL (0.20-1.00); Monocytes % (A) 8.9 %; NRBC Per 100 WBC 0 X 10*3/uL (0.00-0.01); Neutrophils # (A) 3.91 X 10*3/uL (1.80-7.70); Neutrophils % (A) 62.2 %; Platelet Count 229 X 10*3/uL (140-440); RBC 5.05 X 10*6/uL (4.40-5.60); RDW 13.1 % (11.5-14.5); WBC 6.28 X 10*3/uL (4.50-10.00)
== END | disposition home or self-care (01) ==
LOC: LABPAT 14:48
PROVIDERS: ATTEND Surgery
DX: Z01.818 Encounter for other preprocedural examination (principal); K40.90 Unilateral inguinal hernia, without obstruction or gangrene, not specified as recurrent
CPT/HCPCS: 85025; 86850; 86900; 86901; 93005